=== PATIENT | female | born 1990 | race African-American/Black ===

== ENCOUNTER 2023-10-04 09:14 | Day surgery (SDC) | payer MEDICAID ==
[~2023-10-04] VITALS: Ht 162.6 cm; Wt 142.2 kg
[~2023-10-04 09:14] MED LIST: LR 1,000 ML IV SCH; NO HOME MEDICATIONS; Ondansetron 4 MG/2 ML VIAL IV PRN; PHENERGAN 25 TA25 MG PO
[2023-10-04] MEDS ORDERED: VITAMIN D 50,1.25 MG PO (09:37)
[2023-10-04] MEDS ORDERED: IRON TABLETS325 MG PO (09:39)
[2023-10-04] MEDS ORDERED: Lidocaine PF 2% (20 MG/ML) 5 ML VIAL ONE (10:21)
[2023-10-04 11:00] VITALS: BP 109/58; PULSE 58; TEMP 97.2
[2023-10-04 11:15] VITALS: BP 119/75; PULSE 60
--- NOTE | 2023-10-04 12:24 | NUR ---
[id number]: PT TO RECOVERY BAY FROM ENDO RALF S/P EGD WITH BX A&O, PLACED ON MONITOR, VSS ON RA DENIES COMPLAINT RECEIVED REPORT AND ASSUMED CARE OF PT FROM MARIBEL TATUM AT BEDSIDE PROVIDED FOOD/FLUIDS, TOLERATING WELL PT HAS REMAINED A&O, NAD, VSS ON RA, TOLERATING PO, IS WITHOUT SIGNIFICANT COMPLAINT, WITH STEADY GAIT BY THE END OF STAY IV D/C'D. D/C INSTRUCTIONS, FOLLOW UP REVIEWED AND HANDED TO PT. ALL QUESTIONS AND CONCERNS ADDRESSED TO PT SATISFACTION. TAKEN TO EXIT VIA W/C WITH ALL BELONGINGS AND PAPERWORK IN HAND, ASSISTED INTO PASSENGER SEAT OF POV. FAMILY TO DRIVE HOME.
[2023-10-04 13:14] VITALS: BP 130/79; PULSE 62; TEMP 97.9
--- NOTE | 2023-10-04 13:17 | NUR ---
0926 Patient ambulatory to bay with steady gait, breathing even and unlabored. Pt is alert and oriented. Consents reviewed and signed by the patient. IV established. LR infusion via gravity at K[facility]. Call light in reach. Warm blanket provided.
== END 2023-10-04 11:35 | disposition home or self-care (01) ==
LOC: SDCO 09:14
DX: K29.50 Unspecified chronic gastritis without bleeding (principal); K44.9 Diaphragmatic hernia without obstruction or gangrene; K21.9 Gastro-esophageal reflux disease without esophagitis; E66.9 Obesity, unspecified; Z68.43 Body mass index [BMI] 50.0-59.9, adult; Z87.891 Personal history of nicotine dependence
CPT/HCPCS: J2704; J7120